=== PATIENT | female | born 1960 | race Caucasian/White ===

== ENCOUNTER → 2016-07-15 | Day surgery (SDC) | payer MEDICARE, MEDICAID ==
[~2016-07-15] MED LIST: FENTANYL PF 100 MCG/2 ML VIAL. IV PRN; GABA-585 PO; IV RINGERS,LACTATED 1000ML 1,000 ML IV SCH; LEVO175T5 PO; LIDOCAINE 1% 1 ML SYRINGE. ID PRN; LISI-338 PO; ONDANSETRON PF 4 MG/2 ML VIAL. IV PRN; PARO10TA24 PO; PROCHLORPERAZINE 10 MG/2 ML VIAL. IV PRN; PROPOFOL 20 ML IV ONE; TRAZ150T55 PO
[2016-07-15 13:28] VITALS: BP 89/59
== END | disposition home or self-care (01) ==
LOC: ENDOS 12:08
PROVIDERS: ATTEND Internal Medicine Gastroenterology
DX: K64.0 First degree hemorrhoids (principal); K29.50 Unspecified chronic gastritis without bleeding; M19.90 Unspecified osteoarthritis, unspecified site; J45.909 Unspecified asthma, uncomplicated; F32.9 Major depressive disorder, single episode, unspecified; I10 Essential (primary) hypertension; E03.9 Hypothyroidism, unspecified; E78.00 Pure hypercholesterolemia, unspecified; D64.9 Anemia, unspecified; Z86.73 Personal history of transient ischemic attack (TIA), and cerebral infarction without residual deficits; Z80.3 Family history of malignant neoplasm of breast; Z80.41 Family history of malignant neoplasm of ovary; Z90.49 Acquired absence of other specified parts of digestive tract; Z90.710 Acquired absence of both cervix and uterus
CPT/HCPCS: 43235; 45378; J2704

== ENCOUNTER → 2017-03-10 | Outpatient (CLI) | payer MEDICARE, OTHER ==
[2016-07-15 13:28] VITALS: BP 89/59
[~2017-03-10] MED LIST changes: -FENTANYL PF 100 MCG/2 ML VIAL. IV PRN; -IV RINGERS,LACTATED 1000ML 1,000 ML IV SCH; -LIDOCAINE 1% 1 ML SYRINGE. ID PRN; -ONDANSETRON PF 4 MG/2 ML VIAL. IV PRN; -PARO10TA24 PO; +PARO10TA57 PO; -PROCHLORPERAZINE 10 MG/2 ML VIAL. IV PRN; -PROPOFOL 20 ML IV ONE; +TRAZ150T49 PO; -TRAZ150T55 PO
--- NOTE | 2017-03-10 16:48 | KCIC ---
INDICATION: Chronic neck pain. TECHNIQUE: Sagittal T1, sagittal T2, sagittal STIR, axial T2, and axial T2 gradient sequences are provided. Comparison is a CT from November 21, 2008. FINDINGS: There is negligible anterolisthesis at C2-C3. There is narrowing of the interspace at C5-C6. There is slight straightening of cervical lordosis. There is no marrow edema or worrisome marrow lesion. There is no cord signal abnormality. Cervicomedullary junction is unremarkable. Degenerative findings by individual level are as follows: C2-C3: Uncinate process spurring is noted on the left with minimal left foraminal narrowing. C3-C4: Disc osteophyte complex and uncinate process spurring is noted. Midline AP diameter of the thecal sac is 11-12 mm. There is moderate foraminal narrowing bilaterally. C4-C5: Disc osteophyte complex has a shallow right paracentral protrusion. There is no canal or foraminal compromise, midline AP diameter of the thecal sac 11 mm. C5-C6: Disc osteophyte complex and uncinate process spurring are noted. There is buckling of ligamentum flavum. There is canal stenosis with midline AP diameter of the thecal sac narrowed to 9 mm. Foraminal narrowing is at least moderate, may be moderate to severe proximally on the right. C6-C7: Disc bulge and buckling of ligamentum flavum are noted without canal or foraminal compromise. C7-T1: There is no canal or foraminal compromise. IMPRESSION: Degenerative changes in the cervical spine, canal stenosis and foraminal narrowing greatest at C5-C6. Electronically signed by: Edd Watters MD (03/10/2017 4:45 PM) [email or web address]
--- NOTE | 2017-03-10 17:02 | KCIC ---
INDICATION: Chronic back and neck pain. TECHNIQUE: Sagittal T1, sagittal T2, sagittal STIR, axial T1, and axial T2 sequences are provided. No comparison is available. FINDINGS: There is negligible retrolisthesis at L2-L3 and L3-L4. There is no worrisome marrow lesion. Endplate edema at the lumbosacral junction appears degenerative. There is mild endplate irregularity and a few small Schmorl's nodes. There is diffuse disc desiccation. There is mild narrowing of disc height at L3-L4. Conus medullaris is normal in signal intensity and in position. Probable left renal cyst measures 2.4 cm. The numbering system assumes 5 lumbar type vertebral bodies. Findings by individual level are as follows: T11-T12: There is a disc bulge without canal or foraminal compromise. T12-L1: There is a disc bulge without canal or foraminal compromise. L1-L2: Disc bulge and minimal facet hypertrophy are noted with no canal or foraminal compromise. L2-L3: Disc bulge and facet hypertrophy are noted without canal or foraminal compromise. L3-L4: There is a diffuse disc bulge. There is a broad-based protrusion on the left which extends from paracentral to foraminal. There is facet hypertrophy. There is lateral recess narrowing on the left. The midline AP diameter of the thecal sac is still 13 mm. There is mild to moderate left and mild right foraminal narrowing. L4-L5: Disc bulge and facet hypertrophy are noted with mild right foraminal narrowing. L5-S1: Disc bulge and facet hypertrophy are noted with [id number] bilateral foraminal narrowing. IMPRESSION: Mild degenerative changes in the lumbar spine with findings greatest at L3-L4. Electronically signed by: Edd Watters MD (03/10/2017 4:59 PM) [email or web address]
== END | disposition home or self-care (01) ==
LOC: KCIC MRI 15:03
PROVIDERS: ATTEND Anesthesiology Pain Medicine
DX: M54.16 Radiculopathy, lumbar region (principal); M48.02 Spinal stenosis, cervical region; M47.896 Other spondylosis, lumbar region; G89.29 Other chronic pain
CPT/HCPCS: 72141; 72148